=== PATIENT | female | born 1965 | race Caucasian/White ===

== ENCOUNTER → 2016-08-02 | Outpatient (CLI) | payer OTHER ==
[~2016-08-02] MED LIST: AMLO10TA2 PO; AUGM500T7 PO; BACT800T5 PO; DOXY100C PO; GABA300C5 PO; GLIP10TA6 PO; LISI-515 PO
--- NOTE | 2016-08-02 17:15 | RADRPT ---
EXAM DATE/TIME: 08/02/2016 14:56 [facility] COMPARISON: No previous studies available for comparison. INDICATIONS : Pain on top of left foot post surgery. MEDICAL HISTORY : None. SURGICAL HISTORY : First digit amputation May 2016. ENCOUNTER: Initial ACUITY: 2 months PAIN SCORE: 9/10 LOCATION: Left foot FINDINGS: The patient is status post amputation of the left first digit. Subchondral sclerosis and focal erosi ve or post surgical changes are noted involving the left first metatarsal head. There is no acute fr acture or dislocation. CONCLUSION: 1. Subchondral sclerosis and either erosive changes or post surgical changes involving the left first metatarsal head. 2. Status post amputation of the left first digit. 3. No acute fracture or dislocation. Hernan Paulson MD on August 02, 2016 at 17:06 Board Certified Radiologist. This report was verified electronically.
== END ==
LOC: HRAD 14:31
PROVIDERS: ATTEND Podiatrist Primary Podiatric Medicine
DX: E11.621 Type 2 diabetes mellitus with foot ulcer (principal)
CPT/HCPCS: 73630

== ENCOUNTER → 2016-08-27 | Outpatient (CLI) | payer OTHER ==
--- NOTE | 2016-08-28 12:11 | RADRPT ---
EXAM DATE/TIME: 08/27/2016 12:34 [facility] COMPARISON: FOOT LEFT COMPLETE ([id number]), August 02, 2016, 14:56. INDICATIONS : Left foot ulcer. DOSE: 21 mCi Tc99m Ceretec labeled white blood cells IV SPECT IMAGIN hrs, 20 hrs IMAGNG: SPECT/CT imaging with fusion was performed. RADIATION DOSE: 5.32 CTDIvol (mGy) ; Multiple Day Study MEDICAL HISTORY : Hypertension. Diabetes mellitus type 2. SURGICAL HISTORY : Partial amputation of right foot, amputation great toe of left foot, right thigh surgery and right ey e surgery. ENCOUNTER: Initial ACUITY: >1 yr PAIN SCALE: 3/10 LOCATION: Left Foot. TECHNIQUE: Following the in vitro labeling of autologous white cells and reinjection, whole body scan was perfor med at the specified times. SPECT imaging was performed at the specified time in sagittal, axial and coronal planes. Attenuation correction was performed with the computed tomography and both the atten uation correction and non-attenuation corrected data sets were reviewed. FINDINGS: There is focal intense localization of white cells in the dorsal aspect of the 1st digit amputation s tump. The white cell accumulation is well-defined and does correspond to the areas that contain subc utaneous gas. The appearance is characteristic of cellulitis. The margin of the cellulitis does com e into contact with the distal cortex of the 1st metatarsus and, in the area where there are small cy stic changes along the distal cortex of the 1st metatarsus, there may be contiguous white cell accumu lation. There are no other focal accumulations of white cells in either foot. CONCLUSION: Intense white cell accumulation at the 1st digit amputation stump predominantly in the soft tissues. The close proximity of this cellulitis to the distal 1st metatarsus makes it difficult to either inc lude or exclude contiguous osteomyelitis. If there is osteomyelitis, it would correspond to the area that also demonstrates microcystic change in the distal cortex of the 1st metatarsus. Pratik Morrell MD on August 28, 2016 at 12:03 Board Certified Radiologist. This report was verified electronically.
== END ==
LOC: HRAD 08:53
PROVIDERS: ATTEND Podiatrist Primary Podiatric Medicine
DX: E11.621 Type 2 diabetes mellitus with foot ulcer (principal)
CPT/HCPCS: 78807; 78999; A9569